=== PATIENT | female | born 1990 | race Caucasian/White ===

== ENCOUNTER 2016-11-26 22:05 | Emergency (ER) | payer BC ==
[~2016-11-26] VITALS: Ht 157.5 cm; Wt 56.1 kg
[~2016-11-26 22:05] MED LIST: IBUP-1547 PO
[2016-11-26 22:10] VITALS: Ht 157.5 cm; Wt 56.1 kg
--- NOTE | 2016-11-26 22:24 | ERPDOC ---
Departure Disposition Decision Date: November 26, 2016 Disposition Decision Time: 23:32 Disposition: 01 DISCHARGED HOME, SELF-CARE Impression Impression Impression: Primary Impression: Cholelithiasis Cholelithiasis location: gallbladder Cholecystitis presence: without cholecystitis Biliary obstruction: without biliary obstruction Qualified Codes: K80.20 - Calculus of gallbladder without cholecystitis without obstruction Additional Impression: Dysfunctional gallbladder Severity: Severe Condition: Improved Seen By: Physician only Patient Instructions: Gallstones (ED) Problems/Meds/Labs Reviewed?: Yes Medications reviewed and manag: Yes Additional Instructions: Compazine 10 mg one tablet every 6-8 hours for cramps/nausea [place] 5 mg one tablet up to 4 times daily as needed for severe pain Contact a surgeon of your choice such as Dr. Buckley to arrange gallbladder removal Follow up care ordered?: Yes Mental Status: Alert Scripts Hydrocodone/Acetaminophen ([place] 5-325 Tablet) 5-325 Tablet 1 TAB PO QID Y for PAIN, #15 Prov: DARIANA FIGUEROA MD 11/26/16 Prochlorperazine Maleate (Compazine) 10 Mg Tablet 10 MG PO QID, #30 TAB 0 Refills Prov: DARIANA FIGUEROA MD 11/26/16 HPI - Abdominal Pain General Chief Complaint: Abdominal Pain Stated Complaint: UPPER ABDOMEN PAIN Time Seen by Provider: 22:13 Source: patient, family History/Exam Limitations: no limitations HPI - Abdominal Pain Initial Comments Epigastric and RUQ abd pain for several hours. Now intolerable, with nausea. Hx of same 07/01 and diag with gallbladder stones. Has not had gallbladder removed due to fear. No meds taken yet. Occurred At: home Onset: Rapid Duration: 6-12 hrs Quality: sharpness, stabbing Location: RUQ, epigastric Radiation: back Associated Symptoms: nausea/vomiting, DENIES: back pain, chest pain, diaphoresis, fatigue, fever/chills, headache, heartburn, rash, shortness of breath, swelling/mass in abdomen, syncope, weakness Hx of Similar Symptoms: Yes Allergies: Coded Allergies: No Known Allergies (Unverified , 11/26/16) Past History Past Medical History GI: gallbladder disease Surgical History Denies Surgeries Vaccines Hx Influenza Vaccination: Yes Hx Pneumococcal Vaccination: No Hx Tetanus, Diptheria, Pertuss: Yes Social History Smoking Status: Never smoker Does patient use chewing tobac: No Second Hand Exposure: No Substance Use Type: does not use Alcohol Intake: none Record Review Pertinent history updated: Yes Review of Systems Constitutional Constitutional: DENIES: appetite decrease, appetite increase, chills, dizziness , fever, weakness ENMT Ears: DENIES: pain Hearing: DENIES: hearing loss, tinnitus Balance: DENIES: vertigo Mouth/Throat: DENIES: change in swallowing, change in voice, hoarsness, painful swallowing, sore throat Cardiovascular Cardiac: DENIES: chest pain, dyspnea on exertion Rhythm/Rate: DENIES: irregular beat, palpitations, tachycardia Vascular: DENIES: pedal edema Pulmonary Respiratory: DENIES: cough, dyspnea, pleuritic chest pain GI Upper Abdomen: nausea, pain, DENIES: dysphagia, heartburn/indigestion, vomiting Lower Abdomen: DENIES: blood in stool, constipation, diarrhea, pain General: DENIES: burning, dysuria, frequency, pain, urgency Musculoskeletal General: DENIES: cramps, joint pain, joint swelling, pain, weakness Integumentary Skin: DENIES: rash, sores Physical Exam General General Nourishment: well nourished, well developed, appears stated age General Body Habitus: well groomed Vitals and Pain First Documented Vital Signs Date Time Temp Pulse Resp B/P Pulse Ox O2 Delivery O2 Flow Rate FiO2 11/26/16 22:10 98.3 102 18 145/90 99 Room Air Weight: Kilograms: 56.100 Height (feet): 5 Height (inches): 2.00 Triage Pain Scale: RN VS reviewed by Provider: Yes Normal Exams: Head: Normocephalic w/o trauma Eyes: Pupils are PERRLA w/ EOMI, No scleral icterus, irritation, or foreign bodies noted ENMT: No facial trauma, nasal exudates, pharyngeal erythema, or exudates are noted Neck: Full range of motion, without adenopathy, JVD, bruits or thyromegaly Chest/Resp: Clear all rose, with good airflow, and symmetry bilaterally CV: Regular rate and rhythm, without murmur or gallop, Pulses 2+ all extremities, capillary refill, <2 seconds all ext., no pedal edema noted Lymphatic: No lymphadenopathy, or lymphedema noted Musculoskeletal: No tenderness, or deformity noted, good range of motion, all extremities Integumentary: No rashes, hives, or bruising noted, hair and nails, without abnormality Neurologic: Patient is alert, and oriented, cranial nerves, motor/sensory/ cerebellar, exams w/o gross deficits, to observation Psychiatric: Patient exhibits, appropriate attention, emotion and affect Abdomen (brief) Abdominal Brief: FOUND: bowel normo active x4, soft, tender (goal of Epigastric and right upper quadrant abdominal tenderness with positive Baxter sign on inspiration), NOT FOUND: distended, hepatosplenomegaly, pulsatile mass Progress Results/Orders Orders Procedure Category Date Status Time Iv Lock (Ed Only) EDM 11/26/16 Transmitted 22:21 Cbc W/Auto LAB 11/26/16 Complete Diff-Reflex Manual Cmp - Comprehensive LAB 11/26/16 Complete Metabolic Lipase LAB 11/26/16 Complete LAB 11/26/16 In Process Qualitative, Urine 22:21 Ketorolac (Toradol) PHA 11/26/16 Complete 22:30 Prochlorperazine PHA 11/26/16 Complete (Compazine) 22:30 Hydromorphone PHA 11/26/16 Complete (Dilaudid) 22:30 Normal Saline (Normal PHA 11/26/16 Complete Saline Iv) 22:30 UA, LAB 11/26/16 In Process Dip&Micro(Complete) & 22:32 Lab Results Laboratory Tests Test 11/26/16 22:31 11/26/16 22:32 White Blood Count 14.0T/MM3 Red Blood Count 5.03M/MM3 Hemoglobin 14.4GM/DL Hematocrit 43.4% Mean Corpuscular Volume 86.3UM3 Mean Corpuscular Hemoglobin 28.6UUG Mean Corpuscular Hemoglobin Concent 33.2GM/DL RDW Standard Deviation 39.5FL Platelet Count 437T/MM3 Mean Platelet Volume 9.7UM3 Immature Granulocyte % (Auto) 0.2% Neutrophils (%) (Auto) 61.7% Lymphocytes (%) (Auto) 30.4% Monocytes (%) (Auto) 5.6% Eosinophils (%) (Auto) 1.7% Basophils (%) (Auto) 0.4% Absolute Immature Granulocyte (auto 0.03T/MM3 Absolute Neutrophils (auto) 8.6T/MM3 Absolute Lymphocytes (auto) 4.3T/MM3 Absolute Monocytes (auto) 0.8T/MM3 Absolute Eosinophils (auto) 0.2T/MM3 Absolute Basophils (auto) 0.1T/MM3 Turbidity < 20 Sodium Level 148MEQ/L Potassium Level 3.7MEQ/L Chloride Level 101MEQ/L Carbon Dioxide Level 29MEQ/L Anion Gap 18MEQ/L Blood Urea Nitrogen 13.0MG/DL Creatinine 0.8MG/DL Glomerular Filtration Rate Calc 87 BUN/Creatinine Ratio 16RATIO Glucose Level 96MG/DL Calculated Osmolality 284MOSM/KG Calcium Level 10.1MG/DL Total Bilirubin 0.50MG/DL Icterus Index < 2 Aspartate Amino Transf (AST/SGOT) 20U/L Alanine Aminotransferase (ALT/SGPT) 41U/L Alkaline Phosphatase 79U/L Total Protein 8.8G/DL Albumin 5.2G/DL Globulin 3.6G/DL Albumin/Globulin Ratio 1.4RATIO Lipase 63U/L Chemistry Specimen Hemolysis < 15 Urine Collection Type Cleancatch-midstream Urine Color Yellow Urine Turbidity Sl cloudy Urine pH 6.0 Urine Specific [place] 1.025 Urine Protein Negative Urine Glucose (UA) Negative Urine Ketones Negative Urine Blood 1+ Urine Nitrite Negative Urine Bilirubin Negative Urine Urobilinogen 0.2EU/DL Urine Leukocyte Esterase Trace Urine RBC 3-5/HPF Urine WBC 1-3/HPF Urine Squamous Epithelial Cells 10-20 Urine Bacteria Pending Urine Test Negative Medications Current ED Medications Ketorolac Tromethamine (Toradol) 30 mg O ONCE IV Last administered on 22:52; Start 11/26/16 at 22:30; Stop 11/26/16 at 22:31; Status DC Prochlorperazine Edisylate (Compazine) 10 mg O ONCE IV Last administered on 22:48; Start 11/26/16 at 22:30; Stop 11/26/16 at 22:31; Status DC Hydromorphone HCl 0.5 mg 0.5 mg O ONCE IV Last administered on 11/26/16 22:54 ; Start 11/26/16 at 22:30; Stop 11/26/16 at 22:31; Status DC Sodium Chloride (Normal Saline IV) 1,000 ml @ 0 mls/hr Q0M ONCE IV Last administered on 11/26/16 22:48; Start 11/26/16 at 22:30; Stop 11/26/16 at 22:31 ; Status DC Progress Progress Patient given 1 L normal saline IV fluid bolus, Toradol 30 mg, Compazine 10 mg, Dilaudid 0.5 mg - to relief CBC - N CMP/L - N UA/P - N Patient dismissed with prescription and packs for Compazine and [place] to use as needed Patient is strongly encouraged to follow-up with a surgeon of her choice to arrange gallbladder removal. Patient is given contact information for DARIANA Blanco MD November 26, 2016 22:24
[2016-11-26] MEDS ORDERED: PROCHLORPERAZINE 10mg/2ml INJECTION IV ONE (22:30)
[2016-11-26] MEDS ORDERED: KETOROLAC 30mg/ml INJECTION IV ONE (22:30)
[2016-11-26] MEDS ORDERED: HYDROMORPHONE 2mg/ml INJECTION IV ONE (22:30)
[2016-11-26] MEDS ORDERED: NORMAL SALINE 1,000 ML IV ONE (22:30)
[2016-11-26 22:48] LABS: BLOOD, URINE 1+ (NEGATIVE); COLOR,URINE YELLOW (YELLOW); LEUKOCYTE ESTERASE ,URINE TRACE (NEGATIVE); NITRITE,URINE NEGATIVE (NEGATIVE); UROBILINOGEN,URINE 0.2 EU/DL (NORMAL)
[2016-11-26 22:54] LABS: BASOPHILS # (AUTO) 0.1 T/MM3 (0-0.2); BASOPHILS % (AUTO) 0.4 % (0-2); EOSINOPHILS # (AUTO) 0.2 T/MM3 (0-0.5); EOSINOPHILS % (AUTO) 1.7 % (0-4); HCT - HEMATOCRIT 43.4 % (36-46); HGB - HEMOGLOBIN 14.4 GM/DL (12-16); IMMATURE GRANULOCYTE # (AUTO) 0.03 T/MM3 (0.00-0.03); IMMATURE GRANULOCYTE % (AUTO) 0.2 % (0.0-0.5); LYMPHOCYTES # (AUTO) 4.3 T/MM3 (1-4.8); LYMPHOCYTES % (AUTO) 30.4 % (23-45); MEAN CORPUSCULAR HGB 28.6 UUG (26-34); MEAN CORPUSCULAR HGB CONC(MCHC 33.2 GM/DL (31-37); MEAN CORPUSCULAR VOLUME 86.3 UM3 (80-100); MEAN PLATELET VOLUME 9.7 UM3 (9.4-12.4); MONOCYTES # (AUTO) 0.8 T/MM3 (0-0.8); MONOCYTES % (AUTO) 5.6 % (0-9.0); NEUTROPHILS #(AUTO)-ABSOLUTE 8.6 T/MM3 (1.8-7.7); NEUTROPHILS % (AUTO) 61.7 % (33-66); RED BLOOD COUNT 5.03 M/MM3 (4.00-5.20)
[2016-11-26 22:59] LABS: ALBUMIN 5.2 G/DL (3.5-5.0); ALBUMIN/GLOBULIN RATIO 1.4 RATIO (1.1-2.2); ALKALINE PHOSPHATASE 79 U/L (38-126); ALT (SGPT) 41 U/L (9-52); ANION GAP 18 MEQ/L (5-15); AST (SGOT) 20 U/L (14-36); BUN/CREATININE RATIO 16 RATIO (6-26); CALCIUM 10.1 MG/DL (8.4-10.2); CHLORIDE 101 MEQ/L (98-107); CO2 - CARBON DIOXIDE 29 MEQ/L (22-30); CREATININE 0.8 MG/DL (0.7-1.2); GLOMERULAR FILTRATION RATE 87; GLUCOSE 96 MG/DL (65-110); LIPASE 63 U/L (23-300); POTASSIUM 3.7 MEQ/L (3.6-5); SODIUM 148 MEQ/L (134-144); TOTAL PROTEIN 8.8 G/DL (6.3-8.2)
--- NOTE | 2016-11-26 23:23 | NUR ---
REPORT GIVEN TO LESLY HILL
[2016-11-26 23:31] LABS: BACTERIA,URINE NONE SEEN (NEGATIVE)
[2016-11-26] MEDS ORDERED: HYDR-4246 PO (23:34)
[2016-11-26] MEDS ORDERED: PROC-14 PO (23:34)
[2016-11-26] MEDS ORDERED: PROCHLORPERAZINE 10MG (PrePack) SENT HOME ONE (23:45)
[2016-11-26] MEDS ORDERED: HYDROCODONE/APAP 5/325 (PrePack) SENT HOME ONE (23:45)
[2016-11-26 23:48] VITALS: BP 116/57; PULSE 84; RESP 18; TEMP 98.3; O2SAT 92
--- NOTE | 2016-11-26 23:48 | NUR ---
DEPART PT GIVEN DI FOR GALLSTONES, NORCO, COMPAZINE, NEED FOR F/U. PREPAK/RX PROVIDED FOR COMPAZINE, NORCO. PT VERBALIZES UNDERSTANDING OF DI, MEDS, F/U. QUESTIONS ASKED/ANSWERED - DENIES FURTHER QUESTIONS/NEEDS AT THIS TIME. IV SITE REMOVED. PERSONAL BELONGINGS GATHERED. PT ESCORTED/AMBULATED TO ED EXIT - GAIT STABLE, NO SIGN OF DISTRESS AT THIS TIME.
== END 2016-11-26 23:48 | disposition home or self-care (01) ==
LOC: ED 22:05
DX: K80.20 Calculus of gallbladder without cholecystitis without obstruction (principal); K82.8 Other specified diseases of gallbladder
CPT/HCPCS: 80053; 81001; 81025; 83690; 85025; 96361; 96374; 96375; 99284; J0780; J1170; J1885; J7030

== ENCOUNTER 2016-12-06 06:41 | Day surgery (SDC) | payer BC ==
[2016-12-06] VITALS (28 sets, daily range): BP systolic 108–144; BP diastolic 58–89; PULSE 86–120; RESP 14–22; TEMP 97.8–98.9; O2SAT 95–100; Ht 157.5 cm; Wt 63.8 kg
[~2016-12-06] VITALS: Ht 157.5 cm; Wt 63.8 kg
[~2016-12-06 06:41] MED LIST changes: +HYDR-3989 PO; -IBUP-1547 PO; +PROC10TA PO
--- OUTSIDE RECORDS SUMMARY | 2016-12-06 06:44 | XMS REPORT | Continuity of Care Document ---
Author Author [facility] Organization [facility] Address Unknown Phone Unavailable Support Name Relationship Address Phone DARIANA FIGUEROA MD Caregiver [address] [place] [address] Unavailable CHRISTIANO DURAND Next Of Kin [address] [place] [address] Insurance Providers Guarantor Michael Durand Address [address] [place] [address] Email DENIED 11-26-16 [facility] Policy Number [id number] Subscriber's Name Christiano Durand Relationship 01 Spouse Group Number [id number] Advance Directives Directive Response Recorded Date/Time Advanced Directives Type None 11/26/16 10:10pm Chief Complaint and Reason for Visit Chief Complaint Abdominal Pain Reason for Visit Dysfunctional gallbladder Cholelithiasis Problems Active Problems Medical Problem Onset Date Status Term , repeat 08/31/2014 Acute Past Problems Medical Problem Onset Date Cholelithiasis Unknown Dysfunctional gallbladder Unknown Medications Current Home Medications Medication Dose Units Route Directions Days Qty Instructions Start Date Hydrocodone/Acetaminophen ([place] 5-325 Tablet) 5-325 Tablet 1 Tab Oral Four Times Daily as needed for Pain 15 11/26/16 Ibuprofen 800 Mg Tablet 800 Mg Oral Every 8 Hours as needed for Pain 50 Tablet 09/14/15 Prochlorperazine Maleate (Compazine) 10 Mg Tablet 10 Mg Oral Four Times Daily 30 Tablet 11/26/16 Past Home Medications Medication Directions Ordered Status Acetaminophen/Hydrocodone Bitart ([place] 5-325 Tablet) 1 Tab Tablet, 1-2 Tab Oral Every 4 Hours as needed for Pain 08/31/14 Discontinued Ibuprofen 800 Mg Tablet, 800 Mg Oral Every 8 Hours as needed for Pain Discontinued Social History Social History Problem Response Recorded Date/Time Onset Date Status Hx Substance Use No 11/26/2016 10:23pm Not Applicable Not Applicable Hx Alcohol Use No 11/26/2016 10:23pm Not Applicable Not Applicable Has the pt used tobacco in the last 12 months No 09/13/2015 6:14am Not Applicable Not Applicable Query Response Start Date Stop Date Smoking Status Never smoker Hospital Discharge Instructions No hospital discharge instructions. Plan of Care Discharge Date 11/26/16 11:48pm Disposition 01 DISCHARGED HOME, SELF-CARE Condition at Discharge Improved Instructions/Education Provided Gallstones (ED) Prescriptions See Medication Section Referrals SARKIS BUCKLEY MD Address: [address] [place] [address] [place] [phone] Additional Instructions/Education Compazine 10 mg one tablet every 6-8 hours for cramps/nausea [place] 5 mg one tablet up to 4 times daily as needed for severe pain Contact a surgeon of your choice such as Dr. Buckley to arrange gallbladder removal Care Plan and Goals Physician Care Plan Problem: Cholelithiasis with abdominal pain Goal: Follow up with primary care provider Instructions: Take medications and follow care plan as discussed/written Compazine 10 mg one tablet every 6-8 hours for cramps/nausea [place] 5 mg one tablet up to 4 times daily as needed for severe pain Contact a surgeon of your choice such as Dr. Buckley to arrange gallbladder removal Functional Status No functional status results. Allergies, Adverse Reactions, Alerts No known allergies. Immunizations Query Response on File Recorded Date/Time Hx Influenza Vaccination Yes 08/29/14 12:26am Hx Pneumococcal Vaccination No 08/29/14 12:26am Hx Tetanus, Diptheria, Pertussis Yes 08/29/14 12:26am Hx Influenza Vaccination Yes 08/29/14 12:26am Hx Tetanus, Diptheria, Pertussis Yes 08/29/14 12:26am Influenza Vaccine Hx 04/26/2015 11/26/16 10:23pm Tdap Vaccine Hx 07-13-2014 09/13/15 6:14am Vital Signs Acute Vital Signs Vital Response Date/Time Temperature (Fahrenheit) 98.3 deg F (96.8 - 99.1) 11/26/2016 11:48pm Temperature (Calculated Celsius) 36.37602 degrees C (36.0 - 37.3) 11/26/2016 11:48pm Pulse Rate (adult) 84 bpm (60 - 100) 11/26/2016 11:48pm Respiratory Rate 18 breaths/min (10 - 20) 11/26/2016 11:48pm O2 Sat by Pulse Oximetry 92 % (90 - 100) 11/26/2016 11:48pm Blood Pressure 116/57 mm Hg 11/26/2016 11:48pm Height (Feet) 5 feet 11/26/2016 10:10pm Height (Inches) 2.00 inches 11/26/2016 10:10pm Weight (Kilograms) 56.100 kg 11/26/2016 10:10pm Body Mass Index (BMI) 22.0 11/26/2016 10:10pm Results Laboratory Results Test Name Result Units Flags Reference Collection Date/Time Result Date/ Time Comments White Blood Count 14.0 T/MM3 H 4.5-11.0 11/26/2016 10:31pm 11/26/2016 10 :54pm Red Blood Count 5.03 M/MM3 4.00-5.20 11/26/2016 10:31pm 11/26/2016 10: 54pm Hemoglobin 14.4 GM/DL 12-16 11/26/2016 10:31pm 11/26/2016 10:54pm Hematocrit 43.4 % 36-46 11/26/2016 10:31p11/26/2016 10:54pm Mean Corpuscular Volume 86.3 UM3 80-100 11/26/2016 10:31pm 11/26/2016 10:54pm Mean Corpuscular Hemoglobin 28.6 UUG 26-34 11/26/2016 10:31p2016 10:54pm Mean Corpuscular Hemoglobin Concent 33.2 GM/DL 31-37 11/26/2016 10:31pm 11/26/2016 10:54pm RDW Standard Deviation 39.5 FL 36.9-50.2 11/26/2016 10:31pm 11/26/2016 10:54pm Platelet Count 437 T/MM3 H 130-400 11/26/2016 10:31p11/26/2016 10: 54pm Mean Platelet Volume 9.7 UM3 9.4-12.4 11/26/2016 10:31p11/26/2016 10: 54pm Neutrophils (%) (Auto) 61.7 % 33-66 11/26/2016 10:31pm 11/26/2016 10: 54pm Lymphocytes (%) (Auto) 30.4 % 23-45 11/26/2016 10:31p11/26/2016 10: 54pm Monocytes (%) (Auto) 5.6 % 0-9.0 11/26/2016 10:31p 11/26/2016 10:54pm Eosinophils (%) (Auto) 1.7 % 0-4 11/26/2016 10:31p 11/26/2016 10:54pm Basophils (%) (Auto) 0.4 % 0-2 11/26/2016 10:31p 11/26/2016 10:54pm Immature Granulocyte % (Auto) 0.2 % 0.0-0.5 11/26/2016 10:31p 2016 10:54pm Absolute Neutrophils (auto) 8.6 T/MM3 H 1.8-7.7 11/26/2016 10:[facility] 11/26 10:54pm Absolute Lymphocytes (auto) 4.3 T/MM3 1-4.8 11/26/2016 10:31p 2016 10:54pm Absolute Monocytes (auto) 0.8 T/MM3 0-0.8 11/26/2016 10:31p 2016 10:54pm Absolute Eosinophils (auto) 0.2 T/MM3 0-0.5 11/26/2016 10:31p 2016 10:54pm Absolute Basophils (auto) 0.1 T/MM3 0-0.2 11/26/2016 10:31p 2016 10:54pm Absolute Immature Granulocyte (auto 0.03 T/MM3 0.00-0.03 11/26/2016 10: 31p 11/26/2016 10:54pm Icterus Index < 2 0-7 11/26/2016 10:31p 11/26/2016 10:59pm Chemistry Specimen Hemolysis < 15 0-25 11/26/2016 10:31p 11/26/2016 10:59pm 0-25: Specimen Exhibited No Hemolysis. Turbidity < 20 0-20 11/26/2016 10:31p 11/26/2016 10:59pm Sodium Level 148 MEQ/L H 134-144 11/26/2016 10:31pm 11/26/2016 10:59pm Potassium Level 3.7 MEQ/L 3.6-5 11/26/2016 10:31pm 11/26/2016 10:59pm Chloride Level 101 MEQ/L 98-107 11/26/2016 10:11/26/2016 10:59pm Carbon Dioxide Level 29 MEQ/L 22-30 11/26/2016 10:11/26/2016 10: 59pm Anion Gap 18 MEQ/L H 5-15 11/26/2016 10:11/26/2016 10:59pm Blood Urea Nitrogen 13.0 MG/DL 7-17 11/26/2016 10:11/26/2016 10: 59pm Creatinine 0.8 MG/DL 0.7-1.2 11/26/2016 10:11/26/2016 10:59pm BUN/Creatinine Ratio 16 RATIO 6-26 11/26/2016 10:11/26/2016 10: 59pm Glomerular Filtration Rate Calc 87 11/26/2016 10:11/26/2016 10 :59pm Glucose Level 96 MG/DL 65-110 11/26/2016 10:11/26/2016 10:59pm Calculated Osmolality 284 MOSM/KG H 261-280 11/26/2016 10:2016 10:59pm Calcium Level 10.1 MG/DL 8.4-10.2 11/26/2016 10:11/26/2016 10: 59pm Total Bilirubin 0.50 MG/DL 0.20-1.30 11/26/2016 10:11/26/2016 10: 59pm Alkaline Phosphatase 79 U/L 38-126 11/26/2016 10:11/26/2016 10: 59pm Total Protein 8.8 G/DL H 6.3-8.2 11/26/2016 10:11/26/2016 10:59pm Albumin 5.2 G/DL H 3.5-5.0 11/26/2016 10:11/26/2016 10:59pm Globulin 3.6 G/DL 2.4-3.6 11/26/2016 10:11/26/2016 10:59pm Albumin/Globulin Ratio 1.4 RATIO 1.1-2.2 11/26/2016 10:11/26/2016 10:59pm Aspartate Amino Transf (AST/SGOT) 20 U/L 14-36 11/26/2016 10:11/26 10:59pm Alanine Aminotransferase (ALT/SGPT) 41 U/L 9-52 11/26/2016 10:31pm 10:59pm Lipase 63 U/L 23-300 11/26/2016 10:31pm 11/26/2016 10:59pm Urine Collection Type CLEANCATCH-MIDSTREAM 11/26/2016 10:32pm 11/26 10:48pm Urine Color YELLOW YELLOW 11/26/2016 10:32pm 11/26/2016 10:48pm Urine Turbidity SL CLOUDY CLEAR 11/26/2016 10:32pm 11/26/2016 10: 48pm Urine Specific [place] 1.025 1.015-1.025 11/26/2016 10:32pm 2016 10:48pm Urine pH 6.0 5.0-8.0 11/26/2016 10:32pm 11/26/2016 10:48pm Urine Leukocyte Esterase TRACE A NEGATIVE 11/26/2016 10:32pm 2016 10:48pm Urine Nitrite NEGATIVE NEGATIVE 11/26/2016 10:32pm 11/26/2016 10: 48pm Urine Protein NEGATIVE NEGATIVE 11/26/2016 10:32pm 11/26/2016 10: 48pm Urine Glucose (UA) NEGATIVE NEGATIVE 11/26/2016 10:32pm 11/26/2016 10 :48pm Urine Ketones NEGATIVE NEGATIVE 11/26/2016 10:32pm 11/26/2016 10: 48pm Urine Urobilinogen 0.2 EU/DL NORMAL 11/26/2016 10:32pm 11/26/2016 10: 48pm Urine Bilirubin NEGATIVE NEGATIVE 11/26/2016 10:32pm 11/26/2016 10: 48pm Urine Blood 1+ A NEGATIVE 11/26/2016 10:32pm 11/26/2016 10:48pm Urine WBC 1-3 /HPF 0-5 11/26/2016 10:32pm 11/26/2016 10:58pm Urine RBC 3-5 /HPF H 0-3 11/26/2016 10:32pm 11/26/2016 10:58pm Urine Squamous Epithelial Cells 10-20 11/26/2016 10:32pm 2016 10:58pm Urine Bacteria NONE SEEN NEGATIVE 11/26/2016 10:32pm 11/26/2016 11: 31pm Urine Culture Indicated CULT NOT INDICATED 11/26/2016 10:32pm 11/26 11:31pm Procedures No known history of procedures. Encounters Encounter Location Arrival/Admit Date Discharge/Depart Date Attending Provider Departed Emergency Room [facility] 11/26/16 10:05pm 11/26/16 11: 48pm DARIANA FIGUEROA MD Recent Diagnosis
[2016-12-06] MEDS ORDERED: LIDOCAINE 1% (10mg/ml) 2ml SDV INJ ONE (07:00)
[2016-12-06] MEDS: LR 1,000 ML IV SCH ×2 (07:58→17:00)
[2016-12-06] MEDS ORDERED: MIDAZOLAM 2mg/2ml INJECTION IV ONE (09:15)
--- NOTE | 2016-12-06 09:23 | ANESPREOP ---
Anesthesia Record Date and Time DATE: 12/06/16 TIME: 09:08 Pre-Op Diagnosis biliary colic Proposed Surgical Procedure LAP SATYA Allergies: Coded Allergies: No Known Allergies (Unverified , 12/06/16) Ht/Wt/BMI Height: 5 ' 2.00 " Weight: 63.800 kg BMI: 25.7 kg/m2 Vital Signs Date Time Temp Pulse Resp B/P Pulse Ox O2 Delivery O2 Flow Rate FiO2 12/06/16 07:19 97.8 86 14 127/79 98 Room Air Medications Inpatient Medications Current Medications Medications (Trade) Dose Ordered Sig/Red Start Time Stop Time Status Last Admin Dose Admin Lactated Ringer's (Lactated Ringers) 1,000 ml @ 100 mls/hr Q10H 12/06/16 07:00 12/06/16 07:58 100 MLS/HR Hydrocodone/Apap ([place] 5-325 Tablet) 5-325 Tablet, 1 TAB PO Q6H PRN for PAIN, ( Reported) Last Taken: on 12/03/16 Prochlorperazine Maleate (Prochlorperazine Maleate ) 10 Mg Tablet, 1 TAB PO Q6HPRN PRN for NAUSEA, (Reported) Currently on Beta Lin: No Medical/Surgical History Anesthesia PMH: Denies: *Diabetes, Anesthesia Reactions (NO AIRWAY ISSUES), Arthritis, Cancer, Clotting Problems, Glaucoma, Malignant Hyperthermia (no family hx MH), Renal Disease, Sleep Apnea, Thyroid Disease Smoking Status: Never smoker Has pt. smoked today?: No Use Chewing Tobacco?: No Second Hand Exposure: No Substance Use Type: does not use Substance last used: unknown Alcohol Intake: a few times a week Last Drink: unknown HX of Last Menstrual Period: NOVEMBER 08 2013 Past Surgical History Orthopedic Surgeries: Abdominal Surgeries: Genitourinary Surgeries: Cardiac Surgeries: Endocrine Surgeries: Reproductive Surgeries: Neurological Surgeries: Ear Surgeries: Nose Surgeries: Throat Surgeries: Other Surgeries: Anesthesia Adverse Reactions: FOUND none Family Hx of Anesthesia Advers: none Hx of Motion Sickness: No Pertinent Findings Test 12/06/16 07:19 Urine Test Negative (NEGATIVE) EKG Rhythm: Sinus Rhythm Physical Exam Respiratory: Bilat breath sounds equal, Lungs clear Cardiovascular: FOUND Regular rate, rhythm, FOUND No murmur Airway Assessment Mallampati Score: II TMD: 3 Fingerbreadths Neck Extension: Good Overall Assessment: No Airway Concerns ASA: 1 Plan Anesthesia Plan: GETA Discussion Discussed risks/options/alternatives of anesthesia and questions answered. Patient consents. Nursing pain assessment noted. Present: Family Member, Parent Attestation Statement Prior to the delivery of any anesthetic medication, I examined the patient, developed the plan, obtained the patient's consent and discussed the risk and benefits of the procedure with the patient/guardian. KHRIS CAROLINA CRNA December 06, 2016 09:23
[2016-12-06] MEDS ORDERED: DEXAMETHASONE 4mg/ml - 1ml INJECTION ONE (09:30)
[2016-12-06] MEDS ORDERED: GLYCOPYRROLATE 0.4mg/2ml INJECTION ONE (09:30)
[2016-12-06] MEDS ORDERED: ROCURONIUM 50mg/5ml INJECTION IV ONE (09:30)
[2016-12-06] MEDS ORDERED: PROPOFOL 200mg 20 ML IV ONE (09:30)
[2016-12-06] MEDS ORDERED: FENTANYL 250mcg/5ml INJECTION ONE (09:31)
[2016-12-06] MEDS ORDERED: LIDOCAINE 1% (10mg/ml) 30ml SDV ONE (09:32)
[2016-12-06] MEDS ORDERED: BUPIVACAINE 0.25%/EPI 1:200,000 30ml SDV ONE (09:32)
[2016-12-06] MEDS ORDERED: IOHEXOL 300 MG/ML 50ml INJECTION ONE (09:32)
[2016-12-06] MEDS ORDERED: HYDROMORPHONE 2mg/ml INJECTION ONE (11:07)
[2016-12-06] MEDS ORDERED: SUGAMMADEX 200 MG/2 ML INJECTION IV ONE (11:14)
[2016-12-06] MEDS ORDERED: ONDANSETRON 4mg/2ml INJECTION ONE (11:14)
[2016-12-06] MEDS ORDERED: HYDROMORPHONE 2mg/ml INJECTION IV PRN ×2 (11:15→12:00)
[2016-12-06] MEDS ORDERED: KETOROLAC 30mg/ml INJECTION ONE (11:15)
--- NOTE | 2016-12-06 11:32 | DI ---
Indication: ITS.REASON: LAP ASTYA PROCEDURE: RF CHOLANGIOGRAM OPERATIVE: Comparison: Gallbladder ultrasound dated July 06, 2016 Findings: 2 fluoroscopic spot images are submitted from an intraoperative cholangiogram. Images demonstrate injection of contrast into the cystic duct with filling of the common duct and intrahepatic biliary tree. No discrete filling defects are identified. Contrast flows into the duodenum. Impression: Intraoperative fluoroscopy as above. Please refer to the dictated operative note for further details. Fluoroscopy time is 10 seconds. Fluoroscopy dose is 191.3 mRad. .
--- NOTE | 2016-12-06 11:51 | GSPOSTPROC ---
Immediate Operative Note DATE: 12/06/16 TIME: 11:50 Postop Diagnosis: biliary colic Surgery Type: Laparoscopic Surgical Procedure: Cholecystectomy Surgeon: Ina ASA: 1 SARKIS GUAN MD December 06, 2016 11:51
[2016-12-06] MEDS ORDERED: HYDR-3989 PO (11:53)
[2016-12-06] MEDS ORDERED: METOCLOPRAMIDE 10mg/2ml INJECTION IV PRN (12:00)
[2016-12-06] MEDS ORDERED: ONDANSETRON 4mg/2ml INJECTION IV PRN (12:00)
[2016-12-06] MEDS ORDERED: KETOROLAC 30mg/ml INJECTION IV PRN (12:00)
--- NOTE | 2016-12-06 12:24 | ANESPO ---
Post-Op Note Date 12/06/16 Time: 12:22 Status Pt Participated in Evaluation: Pt participated in person Vital Signs Date Time Temp Pulse Resp B/P Pulse Ox O2 Delivery O2 Flow Rate FiO2 12/06/16 09:55 99 22 125/71 98 Room Air 12/06/16 07:19 97.8 Respiratory Function: Airway patent, Regular respirations Cardiovascular Function: Regular pulse Mental Status: Alert/oriented Pain Level Intensity: 5 Hydration: IV infusing Complications during Recovery None apparent Follow-Up Instructions Instructions Per Surgeon CURTIS MONCADA CRNA December 06, 2016 12:24
[2016-12-06] MEDS: HYDROCODONE/APAP 5 mg/325 mg TABLET PO PRN ×2 (13:03→15:11)
--- NOTE | 2016-12-07 09:03 | OPNOTEF ---
DATE OF OPERATION 12/06/2016 SURGEON Lopez Buckley MD. PREOPERATIVE DIAGNOSIS Biliary colic. POSTOPERATIVE DIAGNOSIS Biliary colic. PROCEDURE Laparoscopic cholecystectomy with intraoperative cholangiogram. ANESTHESIA General ASA CLASS 1 INDICATIONS The patient is a 26-year-old female who had had a sonogram that showed cholelithiasis. She was having symptoms in the right upper quadrant consistent with biliary colic, so cholecystectomy was recommended to her. When she had ongoing episodes, she did elect to proceed with cholecystectomy. FINDINGS The gallbladder showed omental adhesions around the infundibulum of the gallbladder consistent with prior episodes of biliary colic. Her intraoperative cholangiogram was normal. DESCRIPTION OF PROCEDURE After informed consent was obtained the patient was taken to the operating room and placed in the supine position. General endotracheal anesthesia was administered by the anesthesia team. The patient's abdomen was then prepped and draped in the usual sterile fashion. Local was used to anesthetize the skin beneath the umbilicus and a small skin incision was made with an 11-blade scalpel. The umbilicus was elevated with a penetrating towel clip. A Veress needle was inserted and was used to obtain pneumoperitoneum. A 5 mm trocar was then placed followed by an angled laparoscope. The laparoscope was used to guide placement of two 5 mm ports in the right upper quadrant and a 10 mm port in the subxiphoid region. All of these ports were placed under direct vision after the skin and fascia were anesthetized with local. Traction was then placed on the infundibulum of the gallbladder. Omental adhesions to the gallbladder were then taken down using cautery. Once the peritoneum overlying the infundibulum was taken down with cautery, blunt dissection was performed until the cystic duct and cystic artery were dissected free circumferentially. Once a critical view of safety was obtained, a clip was placed proximally on the cystic duct and cystic artery. A small ductotomy was created and the cholangiogram catheter was threaded into position. Intraoperative cholangiogram was obtained and was normal. The cholangiogram catheter was then removed. Three additional clips were placed distally on the cystic duct and two more clips on the cystic artery. The cystic artery was divided between the two distal clips and the cystic duct between the two proximal clips. The gallbladder was then taken off of the liver in a retrograde fashion using cautery. Once the gallbladder was removed, hemostasis of the gallbladder fossa was assured. The gallbladder was placed within an endoscopic retrieval bag and removed from the subxiphoid port site. The port was replaced. The right upper quadrant was irrigated with saline and suctioned free of fluid. The area beneath the laparoscopic entry site was inspected was found to be without injury. The right upper quadrant ports were removed under direct vision after the fascia of the subxiphoid port site was closed with a [id number] stitch using the laparoscopic suture passer. Pneumoperitoneum was evacuated and the umbilical port was removed. All of the skin incisions were closed with buried interrupted 4-0 Monocryl stitches. Benzoin, Steri-Strips and sterile Band-Aids were applied. The patient tolerated the procedure well. NICKI
== END 2016-12-06 19:34 | disposition home or self-care (01) ==
LOC: SRG 06:41 → SCU 06:41
PROVIDERS: ATTEND Surgery
DX: K80.10 Calculus of gallbladder with chronic cholecystitis without obstruction (principal); K82.8 Other specified diseases of gallbladder; F41.9 Anxiety disorder, unspecified; G43.909 Migraine, unspecified, not intractable, without status migrainosus; Z79.1 Long term (current) use of non-steroidal anti-inflammatories (NSAID); Z79.899 Other long term (current) drug therapy
CPT/HCPCS: 47563; 74300; 81025; J1100; J1170; J1885; J2250; J2405; J2704; J3010; J7030; J7120; Q9967; S0020